=== PATIENT | male | born 1955 | race Caucasian/White ===

== ENCOUNTER 2017-06-19 13:57 | Emergency (ER) | payer MEDICAID ==
[2017-06-19 15:36] LABS: BASOPHILS % (AUTO) 0.4 %; EOSINOPHILS # (AUTO) 0.2 10^3/uL (0.0-0.7); EOSINOPHILS % (AUTO) 3.5 %; HGB - HEMOGLOBIN 16.5 g/dL (14.0-18.0); LYMPHOCYTES # (AUTO) 1.7 10^3/uL (1.5-3.5); LYMPHOCYTES % (AUTO) 38.2 %; MEAN CORPUSCULAR HEMOGLOBIN 29.8 pg (27.0-31.0); MEAN CORPUSCULAR HGB CONC 32.8 g/dL (32.0-36.0); MEAN CORPUSCULAR VOLUME 90.7 fL (80.0-94.0); MEAN PLATELET VOLUME 7.8 fL (7.4-11.4); MONOCYTES # (AUTO) 0.5 10^3/uL (0.0-1.0); MONOCYTES % (AUTO) 10.7 %; NEUTROPHILS # (AUTO) 2.1 10^3/uL (1.5-6.6); NEUTROPHILS % (AUTO) 47.2 %; PLT - PLATELET COUNT 190 10^3/uL (130-450); RED BLOOD COUNT 5.54 10^6/uL (4.70-6.10); RED CELL DISTRIBUTION WIDTH 12.7 % (12.0-15.0); WHITE BLOOD COUNT 4.5 x10^3/uL (4.8-10.8)
[2017-06-19 15:46] LABS: ALBUMIN 4.1 g/dL (3.2-5.5); ALBUMIN/GLOBULIN RATIO 1.2 (1.0-2.2); CALCIUM 8.8 mg/dL (8.5-10.3); CREATININE 0.8 mg/dL (0.6-1.2); TOTAL PROTEIN 7.6 g/dL (6.7-8.2)
--- NOTE | 2017-06-19 16:02 | ED Physician Documentation ---
PD HPI NVD - Stated complaint Stated Complaint: DEHYDRATION - Chief complaint Chief Complaint: General - History obtained from History obtained from: Patient - History of Present Illness Timing - onset: How many days ago (few) Timing - duration: Days (he has had few days of feeling malaise, nausea and vomiting with diarrhea as well. He has diabetes but was controlled with diet and metformin. He says he had gotten stomach cramps and irregular stools with the metformin so stopped taking it few months ago. Was doing okay with diet control. However sugars have been up the past several days with illness (had some congestion and cough as well the past week). He feels generally weak the past 2-3 days. Seen in office today for the nausea and diarrhea and referred to ED with blood sugar reading in 300s.) Timing - details: Gradual onset Associated symptoms: Abdominal pain (crampy intermittent.), Loss of appetite. No: Fever, Hematemesis, Melena, Near syncope / syncope, Weight loss, Dysuria Contributing factors: No: Sick contact, Bad food, Travel, Recent antibiotics Similar symptoms before: Has not had sx before Recently seen: Clinic (today and referred to ED) Review of Systems Constitutional: reports: Myalgias, Fatigue. denies: Fever, Chills Nose: reports: Rhinorrhea / runny nose, Congestion Throat: denies: Sore throat Respiratory: denies: Cough GI: reports: Abdominal Pain (intermittent for 2-3 days with the diarrhea), Nausea, Vomiting, Diarrhea. denies: Abdominal Swelling Skin: denies: Rash, Lesions Neurologic: reports: Generalized weakness. denies: Focal weakness, Numbness, Near syncope, Confused, Altered mental status PD PAST MEDICAL HISTORY - Past Medical History Past Medical History: Yes Cardiovascular: None Respiratory: None Neuro: None Endocrine/Autoimmune: Type 2 diabetes GI: None : None HEENT: None Psych: None Musculoskeletal: None Derm: None - Past Surgical History General: Appendectomy - Present Medications Home Medications: Ambulatory Orders Medication Instructions Recorded Confirmed Doxycycline Monohydrate 100 mg PO BID #14 tablet 06/19/17 Naproxen 375 mg PO BID #20 tablet 06/19/17 Ondansetron Odt [Zofran] 4 mg TL Q6H PRN #15 tablet 06/19/17 glyBURIDE [Glyburide] 5 mg PO DAILY #30 tablet 06/19/17 - Allergies Allergies/Adverse Reactions: Allergies Allergy/AdvReac Type Severity Reaction Status Date / Time ampicillin Allergy Unknown Verified 06/19/17 14:13 propranolol [From Inderal [place]] Allergy Unknown Verified 06/19/17 14:13 - Social History Does the pt smoke?: No Smoking Status: Never smoker Does the pt drink ETOH?: Yes Does the pt have substance abuse?: No - Immunizations Immunizations are current?: No - POLST Patient has POLST: No PD ED PE NORMAL - Vitals Vital signs reviewed: Yes - General General: Alert and oriented X 3, No acute distress, Well developed/nourished - HEENT HEENT: Pharynx benign. No: Moist mucous membranes - Neck Neck: Supple, no meningeal sign, No adenopathy - Cardiac Cardiac: RRR, No murmur - Respiratory Respiratory: Clear bilaterally - Abdomen Abdomen: Normal bowel sounds, Soft, Non tender, Non distended, No organomegaly - Male Male : Deferred - Rectal Rectal: Deferred - Back Back: No CVA TTP - Derm Derm: Normal color, Warm and dry - Extremities Extremities: No deformity, No tenderness to palpate, Normal ROM s pain, No edema , No calf tenderness / cord - Neuro Neuro: Alert and oriented X 3, No motor deficit, Normal speech - Psych Psych: Normal mood, Normal affect Results - Vitals Vitals: Vital Signs - 24 hr 06/19/17 06/19/17 06/19/17 14:08 16:13 17:46 Temperature 36.2 C L Heart Rate 79 71 78 Respiratory 16 16 14 Rate Blood Pressure 123/86 H 124/98 H 132/93 H O2 Saturation 100 97 99 06/19/17 18:43 Temperature Heart Rate 68 Respiratory 18 Rate Blood Pressure 120/79 O2 Saturation 99 Oxygen O2 Source Room air - Labs Labs: Laboratory Tests 06/19/17 06/19/17 06/19/17 15:25 15:25 15:25 WBC 4.5 L RBC 5.54 Hgb 16.5 Hct 50.3 MCV 90.7 MCH 29.8 MCHC 32.8 RDW 12.7 Plt Count 190 MPV 7.8 Neut # 2.1 Lymph # 1.7 [place] # 0.5 Eos # 0.2 Baso # 0.0 Absolute Nucleated RBC 0.00 Nucleated RBC % 0.0 VBG pH VBG pCO2 VBG pO2 VBG HCO3 VBG Total CO2 VBG O2 Saturation VBG Base Excess Sodium 132 L Potassium 4.0 Chloride 98 L Carbon Dioxide 27 Anion Gap 7.0 BUN 12 Creatinine 0.8 Estimated GFR (MDRD) 98 Glucose 236 H POC Whole Bld Glucose Glycated Hemoglobin 12.0 H Estim Average Glucose 298 H Calcium 8.8 Magnesium Total Bilirubin 1.0 AST 17 ALT 25 Alkaline Phosphatase 57 Total Protein 7.6 Albumin 4.1 Globulin 3.5 Albumin/Globulin Ratio 1.2 Lipase 20 L Urine Color Urine Clarity Urine pH Ur Specific [place] Urine Protein Urine Glucose (UA) Urine Ketones Urine Occult Blood Urine Nitrite Urine Bilirubin Urine Urobilinogen Ur Leukocyte Esterase Ur Microscopic Review Urine Culture Comments Serum Ketones 06/19/17 06/19/17 06/19/17 15:25 16:55 17:15 WBC RBC Hgb Hct MCV MCH MCHC RDW Plt Count MPV Neut # Lymph # [place] # Eos # Baso # Absolute Nucleated RBC Nucleated RBC % VBG pH 7.375 VBG pCO2 43.1 VBG pO2 27.6 VBG HCO3 24.6 VBG Total CO2 26.0 VBG O2 Saturation 55.2 L VBG Base Excess -0.7 Sodium Potassium Chloride Carbon Dioxide Anion Gap BUN Creatinine Estimated GFR (MDRD) Glucose POC Whole Bld Glucose Glycated Hemoglobin Estim Average Glucose Calcium Magnesium 1.9 Total Bilirubin AST ALT Alkaline Phosphatase Total Protein Albumin Globulin Albumin/Globulin Ratio Lipase Urine Color YELLOW Urine Clarity CLEAR Urine pH 5.5 Ur Specific [place] 1.015 Urine Protein NEGATIVE Urine Glucose (UA) >=1000 H Urine Ketones TRACE Urine Occult Blood NEGATIVE Urine Nitrite NEGATIVE Urine Bilirubin NEGATIVE Urine Urobilinogen 0.2 (NORMAL) Ur Leukocyte Esterase NEGATIVE Ur Microscopic Review NOT INDICATED Urine Culture Comments NOT INDICATED Serum Ketones NEGATIVE 06/19/17 18:19 WBC RBC Hgb Hct MCV MCH MCHC RDW Plt Count MPV Neut # Lymph # [place] # Eos # Baso # Absolute Nucleated RBC Nucleated RBC % VBG pH VBG pCO2 VBG pO2 VBG HCO3 VBG Total CO2 VBG O2 Saturation VBG Base Excess Sodium Potassium Chloride Carbon Dioxide Anion Gap BUN Creatinine Estimated GFR (MDRD) Glucose POC Whole Bld Glucose 181 H Glycated Hemoglobin Estim Average Glucose Calcium Magnesium Total Bilirubin AST ALT Alkaline Phosphatase Total Protein Albumin Globulin Albumin/Globulin Ratio Lipase Urine Color Urine Clarity Urine pH Ur Specific [place] Urine Protein Urine Glucose (UA) Urine Ketones Urine Occult Blood Urine Nitrite Urine Bilirubin Urine Urobilinogen Ur Leukocyte Esterase Ur Microscopic Review Urine Culture Comments Serum Ketones PD MEDICAL DECISION MAKING - ED course Complexity details: re-evaluated patient (feeling better with fluids and meds. not in DKA. He does not want to take metformin due to side effects. Can try other oral med and have him check sugar trend BId the next week. He likely will benefit from some low dose Lantus or such, but defer to PCP and give him time to think about it. ), considered differential (sounds viral/flu-like and having vomiting/diarrhea, not in DKA. Given IV fluids and meds and feeling much better. ), d/w patient Departure - Departure Disposition: 01 Home, Self Care Clinical Impression: Dehydration, Hyperglycemia, Bronchitis Nausea & vomiting Qualifiers: Vomiting type: unspecified Vomiting Intractability: intractable Qualified Code( s): R11.2 - Nausea with vomiting, unspecified Condition: Stable Record reviewed to determine appropriate education?: Yes Instructions: ED Upper Resp Infec Abx Tx, ED Nausea Vomiting Follow-Up: Geovanny Dixon MD [Primary Care Provider] - Prescriptions: Doxycycline Monohydrate 100 mg PO BID #14 tablet glyBURIDE [Glyburide] 5 mg PO DAILY #30 tablet Naproxen 375 mg PO BID #20 tablet Ondansetron Odt [Zofran] 4 mg TL Q6H PRN #15 tablet PRN Reason: Nausea / Vomiting Comments: Small frequent fluids. Use ondansetron if needed for nausea. Naproxen twice daily for inflammation and pains. He is doxycycline twice daily for a week for the bronchitis type symptoms that you have had persistently. I presume the acute vomiting symptoms are more stomach flu and should be just a few days now and improve from here. Start glyburide daily for your sugars. Check his sugar once or twice daily over the next week to see how the trend is. Stop the glyburide if they are too low. Follow-up with your primary care in about a week. If your sugars remain high they may want to start a long-acting daily insulin but will see how the oral medication does first. Discharge Date/Time: 06/19/17 18:45
[2017-06-19] MEDS ORDERED: ONDANSETRON 4 MG/2 ML VIAL IVP STA (16:22)
[2017-06-19] MEDS ORDERED: DIPHENOX/ATROPINE 2.5/0.025 MG TABLET PO STA (16:22)
[2017-06-19] MEDS ORDERED: FAMOTIDINE 20 MG/50 ML 50 ML IV ONE (16:22)
[2017-06-19] MEDS ORDERED: SODIUM CHLORIDE 0.9% 1,000 ML IV ONE ×2 (16:22→16:23)
[2017-06-19 16:39] LABS: KETONES, SERUM (ACETEST) NEGATIVE (NEGATIVE)
--- NOTE | 2017-06-19 16:44 | XRAY Report ---
EXAM: CHEST RADIOGRAPHY EXAM DATE: 06/19/2017 04:39 PM. CLINICAL HISTORY: Cough for 1 1/2 months. COMPARISON: None. TECHNIQUE: 2 views. FINDINGS: Lungs/Pleura: No focal opacities evident. No pleural effusion. No pneumothorax. Normal volumes. Mediastinum: Heart and mediastinal contours are unremarkable. Other: Negative bony structures. IMPRESSION: Negative 2-view chest radiography. [facility] Referring Provider Line: [phone] SITE ID: [id number]
[2017-06-19 16:46] LABS: MAGNESIUM 1.9 mg/dL (1.7-2.8)
[2017-06-19 16:53] LABS: HB2 TOTAL 18.7 g/dL; HEMOGLOBIN A1C 2.01 g/dL
[2017-06-19 17:01] LABS: VBG BASE EXCESS -0.7 mmol/L (-2 - +2); VBG PCO2 43.1 mmHg (41-51); VBG PH 7.375 (7.31-7.41); VBG PO2 27.6 mmHg (25-47)
[2017-06-19 17:35] LABS: BILIRUBIN,URINE NEGATIVE (NEGATIVE); CLARITY,URINE CLEAR (CLEAR); GLUCOSE, URINE (UA) >=1000 mg/dL (NEGATIVE); KETONES,URINE (UA) TRACE mg/dL (NEGATIVE); LEUKOCYTE ESTERASE, URINE NEGATIVE (NEGATIVE); NITRITE,URINE NEGATIVE (NEGATIVE); OCCULT BLOOD,URINE NEGATIVE (NEGATIVE); PH,URINE 5.5 PH (5.0-7.5); PROTEIN,URINE NEGATIVE (NEGATIVE); UROBILINOGEN,URINE 0.2 (NORMAL) E.U./dL (NORMAL)
[2017-06-19 18:44] VITALS: BP 120/79
== END 2017-06-19 18:45 | disposition home or self-care (01) ==
LOC: ED 13:57
DX: E86.0 Dehydration (principal); E11.65 Type 2 diabetes mellitus with hyperglycemia; J40 Bronchitis, not specified as acute or chronic
CPT/HCPCS: 36415; 71046; 80053; 81003; 82009; 82803; 83036; 83690; 83735; 85025; 96361; 96365; 96375; 99283; 99284; A9270; 81001; 87086

== ENCOUNTER 2018-03-08 06:08 | Outpatient (CLI) | payer MEDICAID ==
[2018-03-08] MEDS ORDERED: GADOBUTROL 10 MMOL/10 ML VIAL ONE (07:55)
[2018-03-08 08:15] LABS: CREATININE 0.8 mg/dL (0.6-1.2)
[2018-03-08] MEDS ORDERED: GADOBUTROL 10 MMOL/10 ML VIAL IVP ONE (09:40)
--- NOTE | 2018-03-08 11:11 | MRI Report ---
Reason: HYPOGONADISM, ABN PROLACTIN LEVEL Procedure Date: 03/08/2018 Accession Number: [id number] / [id number] Procedure: MRI - Brain W/WO CPT Code: FULL RESULT: EXAM: MRI BRAIN AND PITUITARY WITHOUT AND WITH CONTRAST. EXAM DATE: 03/08/2018 10:00 AM. CLINICAL HISTORY: 62-year-old with hypogonadism and elevated prolactin levels. Evaluate sellar or intracranial pathology. COMPARISON: None. TECHNIQUE: Multiplanar, multisequence T1-weighted and fluid-sensitive MR sequences of the brain and pituitary were performed. Other: None. IV Contrast: 10 cc Gadavist. FINDINGS: Brain Volume: Normal for age. Parenchyma: No acute parenchymal hemorrhage, mass, or midline shift. There is minimal bilateral scattered foci of T2/flair signal hyperintensity seen. No areas of restricted diffusion seen to suggest acute infarct. No abnormal enhancement. Pituitary: 6 mm craniocaudally x 13 mm AP x 7 mm transversely. Normal. No masses, hemorrhage, or enlargement. The superior margin is concave. The pituitary stalk is normal in thickness. The adjacent parasellar structures are within normal limits. Ventricles/Cisterns: No hydrocephalus. No abnormal extra-axial fluid collection or hemorrhage. Cisterns are patent. No abnormal postcontrast enhancement. Orbits: Symmetric and unremarkable. IAC: Symmetric and unremarkable. Vasculature: Normal signal flow void is seen in the major arterial structures at the skull base. The dural sinuses are patent and enhance normally. Sinuses: Moderate right mucosal retention cyst versus polyp. Minimal mucosa thickening of the sphenoid sinuses. Bones: No focal pathologic appearing marrow signal changes. Other: None. IMPRESSION: 1. No definite sellar or suprasellar mass seen. 2. No acute intracranial pathology seen; specifically, no acute infarct, acute intracranial hemorrhage, mass, hydrocephalus, or midline shift. 3. Minimal scattered white matter changes seen that are nonspecific, but may represent sequela of chronic small vessel ischemic disease. [facility]
== END 2018-03-08 06:09 | disposition home or self-care (01) ==
LOC: DI 06:08
PROVIDERS: ATTEND Internal Medicine
DX: E29.1 Testicular hypofunction (principal); E22.1 Hyperprolactinemia; R79.89 Other specified abnormal findings of blood chemistry
CPT/HCPCS: 36415; 70553; 82565; A9585